=== PATIENT | male | born 1975 | race Caucasian/White ===

== ENCOUNTER 2023-02-03 08:43 | Outpatient (CLI) | payer BC, SELFPAY | END 2023-02-03 08:44 | disposition home or self-care (01) | LOC: NFLDREF 13:34 | PROVIDERS: PCP Emergency Medicine; Referring Provider Emergency Medicine; Visit Provider Emergency Medicine | DX: Z00.00 Encounter for general adult medical examination without abnormal findings (principal); I10 Essential (primary) hypertension; E78.5 Hyperlipidemia, unspecified; R74.01 Elevation of levels of liver transaminase levels; K76.0 Fatty (change of) liver, not elsewhere classified; Z13.1 Encounter for screening for diabetes mellitus | CPT/HCPCS: 80048; 80061; 80076 ==

== ENCOUNTER 2023-05-16 08:11 | Outpatient (CLI) | payer BC, SELFPAY | END 2023-05-16 08:12 | disposition home or self-care (01) | LOC: NFLDREF 05-17 06:28 | PROVIDERS: PCP Emergency Medicine; Referring Provider Emergency Medicine; Visit Provider Emergency Medicine | DX: R74.01 Elevation of levels of liver transaminase levels (principal); E78.5 Hyperlipidemia, unspecified | CPT/HCPCS: 80061; 80076 ==

== ENCOUNTER 2024-06-28 08:09 | Outpatient (CLI) | payer BC, SELFPAY | END 2024-06-28 08:10 | disposition home or self-care (01) | LOC: NFLDREF 07-02 19:52 | PROVIDERS: PCP Emergency Medicine; Referring Provider Emergency Medicine; Visit Provider Emergency Medicine | DX: Z00.00 Encounter for general adult medical examination without abnormal findings (principal); E78.5 Hyperlipidemia, unspecified; I10 Essential (primary) hypertension | CPT/HCPCS: 80053; 80061 ==

== ENCOUNTER 2025-08-29 08:09 | Outpatient (CLI) | payer BC, SELFPAY | END 2025-08-29 08:10 | disposition home or self-care (01) | LOC: NFLDREF 08-30 19:46 | PROVIDERS: PCP Family Medicine; Referring Provider Family Medicine; Visit Provider Family Medicine | DX: E78.2 Mixed hyperlipidemia (principal); R74.01 Elevation of levels of liver transaminase levels; R17 Unspecified jaundice; I10 Essential (primary) hypertension | CPT/HCPCS: 80053; 80061; G0103 ==